=== PATIENT | male | born 1975 | race African-American/Black ===

== ENCOUNTER 2018-03-01 13:52 | Observation (INO) | payer OTHER ==
[2018-03-01] MEDS ORDERED: Acetaminophen 500 MG TAB ONE (14:44)
[2018-03-01] MEDS ORDERED: Labetalol HCl 100 MG/20 ML VIAL ONE (14:44)
[2018-03-01 15:58] LABS: Troponin I Less than 0.010 ng/mL (< 0.028)
[2018-03-01] MEDS ORDERED: Ondansetron ODT 4 MG TAB PO PRN (18:23)
[2018-03-01] MEDS ORDERED: Ondansetron HCl/PF 4 MG/2 ML Vial IVP PRN (18:23)
[2018-03-01] MEDS ORDERED: Nitroglycerin 0.4 MG TAB (25 Tab Bottle) SL PRN (18:25)
[2018-03-01 19:56] LABS: Troponin I Less than 0.010 ng/mL (< 0.028)
[2018-03-01] MEDS: Famotidine 20 MG TAB PO SCH (21:36)
[2018-03-01] MEDS: Acetaminophen 325 MG TAB PO PRN (21:36)
[2018-03-01 22:35] LABS: Troponin I Less than 0.010 ng/mL (< 0.028)
[2018-03-01 23:23] VITALS: BMI 31.3
--- NOTE | 2018-03-02 00:01 | HP ---
CHIEF COMPLAINT: Chest pain. HISTORY OF PRESENT ILLNESS: The patient is a 42-year-old male with a history of hypertension who is incarcerated at the [facility] who awoke this morning indicating that he felt "discombobulated" as well as having some chest pain and shortness of breath. The patient described the chest pain as a tightness, worse was 7/10. He had no radiation and has stayed central in the parasternal area. He did have some associated nausea and lightheadedness. He felt like his blood pressure was elevated, so he reported it and the guard actually initially took his blood pressure and it was over 200 systol ic. He subsequently had someone evaluated at [facility] and it was still elevated, so they sent him to the ER in [place]. There, the patient's blood pressure was substantially elevated at 240 /140. He received IV Lopressor and nitroglycerin and he reports his chest tightness got better, but then he developed a headache. He was subsequently transferred to this facility. Of note, he did not have ischemic changes on his EKG and his troponin was negative. There, repeat was negative here as well. Currently, the patient reports he is pain free. His systolic is 116. He reports his blood pr essure has never been that way before. REVIEW OF SYSTEMS: Notable for some "itching" in the mid epigastric area that feels like it is more inside. He also thinks he may have some obstructive sleep apnea and has some intermittent pain from sciatica, but otherwise 10-system review was negative. PAST MEDICAL HISTORY: Notable for hypertension and sciatica. PAST SURGICAL HISTORY: None. FAMILY HISTORY: Mother had hypertension and seizures. Father's history is unknown. SOCIAL HISTORY: The patient is a nonsmoker, nondrinker, nondrug user. He does report that in the he had smoked marijuana. He is , but states his surrogate decision maker would be his [facility] er. Her name is Kristy Penn, number is [phone]. He is a FULL CODE. ALLERGIES: None. CURRENT MEDICATIONS: Amlodipine 10 mg p.o. daily and clonidine 0.2 mg p.o. daily. PHYSICAL EXAMINATION: VITAL SIGNS: Currently, BP is 116/70. He is afebrile, respirations 16, pulse is 68. GENERAL APPEARANCE: Age appropriate male, very healthy-appearing, no distress. He is awake, alert, oriented, pleasant and cooperative. HEENT: PERRL. No OP lesions. NECK: Supple and symmetric without any lymphadenopathy, JVD, or carotid bruits. HEART: Regular rate and rhythm with no murmurs, gallops or rubs. LUNGS: Clear to auscultation bilaterally with good chest wall expansion and air exchange. ABDOMEN: Soft, nontender, nondistended, positive bowel sounds, no masses, no organomegaly. EXTREMITIES: Warm and dry with only trace edema at the ankle area. LABORATORY DATA AND IMAGING DATA: White count 5.0, hemoglobin 14.7, platelets 250. Sodium 139, pota ssium 4.1, chloride 102, CO2 26, BUN 9, creatinine 1.22, glucose 107. Troponin less than 0.01 x2. B RESISTOR TESTER 29.9. Chest x-ray clear. IMPRESSION AND PLAN: 1. Chest pain. The patient has a history of hypertension, but no other significant risk factors for coronary artery disease. He has never had any prior cardiac workup. We will keep the patient on te lemetry and observation. Continue to trend troponins and perform nuclear medicine stress test tomorr ow assuming troponins remain negative. 2. Hypertension. Suspect this patient likely had some hypertensive urgency resulting in the chest p ain symptoms. His blood pressure is substantially improved. We will continue with p.r.n. hydralazin e and p.r.n. nitroglycerin sublingual as needed.
[2018-03-02] MEDS: hydrALAZINE 20 MG/ML VIAL SLOW IVP PRN ×2 (04:34→11:20)
[2018-03-02] MEDS: Amlodipine 10 MG TAB PO SCH (08:11)
[2018-03-02] MEDS: Hydrochlorothiazide 25 MG TAB PO SCH (08:11)
[2018-03-02] MEDS: Famotidine 20 MG TAB PO SCH ×2 (08:11→21:10)
[2018-03-02] MEDS ORDERED: Milk Of Magnesia 30 ML UDCUP PO SCH (13:00)
[2018-03-02] MEDS: hydrALAZINE 25 MG TAB PO SCH ×2 (14:08→21:10)
--- NOTE | 2018-03-02 16:02 | PDOC.PN ---
- Subjective Encounter Start Date: 03/02/18 Encounter Start Time: 10:45 Feels ok. No further CP. Hungry. - Objective Resuscitation Status: Resuscitation Status FULL:Full Resuscitation Vital Signs & Weight: Vital Signs (12 hours) Temp Pulse Resp BP BP Pulse Ox 03/02/18 15:20 98.7 F 92 18 163/98 H 96 03/02/18 14:08 170/104 H 03/02/18 11:20 181/118 H 03/02/18 11:16 98.9 F 76 18 185/113 H 99 03/02/18 07:26 98.8 F 77 18 181/112 H 98 03/02/18 04:34 60 179/109 H Weight Admit Weight 200 lb Weight 200 lb I&O: 03/01/18 03/02/18 03/03/18 06:59 06:59 06:59 Intake Total 240 Balance 240 Phys Exam - Physical Examination Constitutional: NAD Respiratory: no wheezing, no rales, no rhonchi, clear to auscultation bilateral Cardiovascular: RRR, no significant murmur, no rub Gastrointestinal: soft, non-tender, no distention, positive bowel sounds Musculoskeletal: no edema Psychiatric: normal affect, A&O x 3 Dx/Plan (1) Chest pain Code(s): R07.9 - CHEST PAIN, UNSPECIFIED Status: Acute (2) Hypertension Code(s): I10 - ESSENTIAL (PRIMARY) HYPERTENSION Status: Acute - Plan * Trops negative for TN. BP too high to stress test. Resumed his Amlodipine, but not his q day Clonidine. Added HCTZ. Has PRN IV Hydralazine. Today added oral hydralazine. Continue to work on lowering his BP in order to get the stress test.
[2018-03-02] MEDS: Acetaminophen 325 MG TAB PO PRN (18:39)
[2018-03-02] MEDS ORDERED: Senokot 8.6 MG TAB PO PRN (19:54)
[2018-03-02] MEDS ORDERED: Docusate 100 MG CAP PO PRN (19:54)
[2018-03-03 06:44] LABS: Anion Gap 12 mmol/L (10-20); BUN (Urea Nitrogen) 11 mg/dL (8.9-20.6); Calc. Creatinine Clearance 87 mL/min (70-130); Calcium 10.1 mg/dL (7.8-10.44); Carbon Dioxide 30 mmol/L (22-29); Chloride 100 mmol/L (98-107); Estimated GFR-MDRD 67; Glucose 104 mg/dL (70-105); Potassium 3.6 mmol/L (3.5-5.1); Sodium 138 mmol/L (136-145)
[2018-03-03] MEDS: Famotidine 20 MG TAB PO SCH (08:05)
[2018-03-03] MEDS: Hydrochlorothiazide 25 MG TAB PO SCH (08:05)
[2018-03-03] MEDS: hydrALAZINE 25 MG TAB PO SCH (08:05)
[2018-03-03] MEDS: Amlodipine 10 MG TAB PO SCH (08:05)
--- NOTE | 2018-03-03 09:52 | PDOC.PN ---
- Subjective Encounter Start Date: 03/03/18 Encounter Start Time: 09:30 Feeling better. Reports his BP is always high, but not as high as it was here. No other complaints. - Objective Resuscitation Status: Resuscitation Status FULL:Full Resuscitation Vital Signs & Weight: Vital Signs (12 hours) Temp Pulse Resp BP BP Pulse Ox 03/03/18 04:30 70 18 136/85 03/02/18 23:30 98.3 F 77 18 153/96 H 98 Weight Admit Weight 200 lb Weight 200 lb I&O: 03/02/18 03/03/18 03/04/18 06:59 06:59 06:59 Intake Total 240 400 Output Total 700 Balance 240 -300 Result Diagrams: 03/03/18 05:30 Phys Exam - Physical Examination Constitutional: NAD Respiratory: no wheezing, no rales, no rhonchi, clear to auscultation bilateral Cardiovascular: RRR, no significant murmur Gastrointestinal: soft, non-tender, no distention, positive bowel sounds Musculoskeletal: no edema Psychiatric: normal affect, A&O x 3 Dx/Plan (1) Chest pain Code(s): R07.9 - CHEST PAIN, UNSPECIFIED Status: Acute Comment: Improved with improved BP. Stress test today. (2) Hypertension Code(s): I10 - ESSENTIAL (PRIMARY) HYPERTENSION Status: Acute Comment: Improved. Not completely controlled but adequate to get stress test and follow up as outpatient. - Plan * Stress test.
[2018-03-03 10:14] VITALS: TEMP 98.7
--- NOTE | 2018-03-03 12:58 | NM ---
CARDIAC SPECT: 03/03/2018 11:49 a.m. HISTORY: Chest pain. Hypertension. TECHNIQUE: A myocardial perfusion scan was performed using the single isotope one day protocol with technetium 9 9m sestamibi, and 11 millicuries was injected intravenously for the rest exam, followed by 30 millicu karan for the stress study. Exercise stress was monitored and interpreted by Betty , Nurse Pract itioner. FINDINGS: Homogeneous tracer distribution is seen in the myocardial segments on stress and rest images, without fixed or reversible defects. GATED SPECT LEVF: 65% WALL MOTION EXAM: Normal. IMPRESSION: Normal myocardial perfusion scan. POS: JEANNE
[2018-03-03 13:21] VITALS: BP 168/102
--- NOTE | 2018-03-03 14:18 | DIS ---
DATE OF ADMISSION: 03/01/2018 DATE OF DISCHARGE: 03/03/2018 DISCHARGE DIAGNOSES: 1. Chest pain. 2. Hypertension with hypertensive urgency. HOSPITAL COURSE: The patient is a 42-year-old male who has a history of hypertension which he reports is generally poorly controlled. The patient is an [facility] in [place]. The patient reported that he started feeling symptoms in the morning with some chest discomfort and felt like his blood pressure was elevated. His blood pressure was checked and it was over 200. He was sent to [facility] where it was confirmed to be too high and he was then sent to the emergency department. In the emergency department, the patient was found to continue to have elevated blood pressure with chest pain. His pressure in the emergency department here was as high as 109, diastolic. But otherwise was somewhat improved. Patient had a negative troponin and no ischemic changes on EKG. The patient was admitted in observation on the tele floor. He had no findings on his telemetry and his troponins remained negative as did his other labs. Unfortunately, the patient's blood pressure did significantly increase requiring doses of IV medication. The patient reported that he had been on amlodipine 10 mg a day, as well as clonidine 0.2 q.a.m. The patient was maintained on his amlodipine, but subsequently had hydrochlorothiazide added and then oral hydralazine. The patient had been scheduled for a stress test, but initially his blood pressure was too high and we had to continue to work to get his blood pressure down in order to get the stress test done. Ultimately on the , we were able to get the stress test done and it came back normal. The patient's symptoms had resolved and his blood pressure was much improved. VITAL SIGNS: Temperature was 97.8, pulse 76, respirations 14, temperature 98% on room air, BP was 158/92. HEART: Regular rate and rhythm. LUNGS: Lungs were clear. ABDOMEN: Abdomen benign. EXTREMITIES: Warm and dry. The patient was felt to be stable for discharge back to the [facility]. Also, of note , on the day of discharge, the patient's creatinine was 1.39 with a GFR of 67. It is unclear if this is where his baseline is, as his original creatinine on admission was 1.22. Given his chronic hypertension, it is suspected that the patient likely has some mild chronic kidney disease; however, this will need to be followed over time in order to fully assess that. When actually calculating the Cockroft-Gault, this puts the patient right around the lower end of normal range. The patient is to return to the [facility] where he can be followed at the [facility]. He is to have a low sodium diet. His activity level is as tolerated. He will have the amlodipine 10 mg p.o. daily, hydrochlorothiazide 25 mg p.o. daily , and hydralazine 25 mg p.o. t.i.d. The patient can return to the emergency department should he have any problems prior to that time. MTDD
--- NOTE | 2018-03-03 16:39 | EKG ---
Test Reason : Blood Pressure : / mmHG Vent. Rate : 082 BPM Atrial Rate : 082 BPM P-R Int : 126 ms QRS Dur : 098 ms QT Int : 356 ms P-R-T Axes : 056 010 057 degrees QTc Int : 415 ms Normal sinus rhythm Normal ECG When compared with ECG of 01-MAR-2018 14:08, (Unconfirmed) Vent. rate has increased BY 28 BPM Confirmed by YEISON URIOSTEGUI, . SIzabel ([id number]) on 03/03/2018 4:39:38 PM Referred By: JERMAIN Confirmed By:DR. Kelsie LATHAM MD
== END 2018-03-03 15:28 ==
LOC: ERS 13:52 → ERHOLD 16:11 → 2SW 21:04
PROVIDERS: ADMIT Internal Medicine; ATTEND Internal Medicine
DX: R07.89 Other chest pain (principal); I16.0 Hypertensive urgency; I10 Essential (primary) hypertension; M54.30 Sciatica, unspecified side; Z79.899 Other long term (current) drug therapy
CPT/HCPCS: 36415; 78452; 80048; 93005; 93010; 93017; 96374; 96375; 96376; A4216; A9500; G0378; J0360